=== PATIENT | female | born 2000 | race Caucasian/White ===

== ENCOUNTER 2025-04-18 20:50 | Emergency (ER) | payer SELFPAY ==
[~2025-04-18] VITALS: Ht 167.6 cm; Wt 93.0 kg
[2025-04-18 21:15] VITALS: BP 126/67; PULSE 72; RESP 18; TEMP 36.6; O2SAT 100
[2025-04-18 22:15] LABS: BASOPHILS % 0.7 % (0.0-2.0); EOSINOPHILS % 1.1 % (0.0-5.0); HEMATOCRIT. 41.7 % (36.0-48.0); HEMOGLOBIN. 13.8 g/dL (12.0-16.0); LYMPHOCYTES % 35.4 % (20.0-50.0); MEAN CORPUSCULAR HEMOGLOBIN 27.5 pg (28.0-32.0); MEAN CORPUSCULAR HGB CONC 33.1 g/dL (31.0-37.0); MEAN CORPUSCULAR VOLUME 83.2 fL (81.0-99.0); MEAN PLATELET VOLUME 8.8 fl (7.4-10.4); NEUTROPHILS % 53.8 % (40.0-76.0); PLATELET 257 x1000/uL (130-400); RED CELL DISTRIBUTION WIDTH 14.5 % (11.6-14.6); WHITE BLOOD COUNT 9.9 x1000/uL (4.5-11.0)
[2025-04-18 22:24] LABS: HCG SCREEN NEGATIVE
[2025-04-18 22:26] LABS: CHLORIDE 106 mEq/L (98-107); POTASSIUM 4.2 mEq/L (3.5-5.1); SODIUM 142 mEq/L (136-145)
[2025-04-18 22:27] LABS: CARBON DIOXIDE 28 mEq/L (21-32)
[2025-04-18 22:28] LABS: CALCIUM 9.4 mg/dL (8.7-10.4)
[2025-04-18 22:32] LABS: CREATININE 0.7 mg/dL (0.6-1.0); GLUCOSE 91 mg/dL (70-105); UREA NITROGEN BLOOD 9 mg/dL (9-23)
[2025-04-18 22:35] LABS: TROPONIN I HIGH SENSITIVITY < 4 ng/L (3.0-34)
== END 2025-04-19 00:12 | disposition left against medical advice (07) ==
LOC: ER 20:50
DX: R07.89 Other chest pain (principal)
CPT/HCPCS: 36415; 71045; 80048; 84484; 84703; 85025; 93005; 99285